=== PATIENT | male | born 1940 | race Caucasian/White ===

== ENCOUNTER 2021-07-30 12:00 | Inpatient (IN) | payer OTHER ==
[2021-08-04] MEDS ORDERED: fentaNYL Citrate/PF 100 MCG/2 ML SYRINGE ONE (06:59)
[2021-08-04] MEDS ORDERED: CEFAZOLIN 2 GM VIAL ONE (07:14)
[2021-08-04] MEDS ORDERED: Sodium Chloride 0.9% 100 ML ONE (07:14)
[2021-08-04] MEDS ORDERED: Lidocaine 1% MPF 2 ML VIAL ONE (07:34)
[2021-08-04] MEDS ORDERED: Lidocaine 1% PF 5 ML VIAL ONE (08:25)
[2021-08-04] MEDS ORDERED: Glycopyrrolate 0.2 MG/ML 5 ML SYRINGE ONE (08:25)
[2021-08-04] MEDS ORDERED: PHENYLEPHRINE-NS 100 MCG/ML 10 ML SYRINGE ONE (08:25)
[2021-08-04] MEDS ORDERED: PROPOFOL 200 MG/20 ML VIAL ONE (08:25)
[2021-08-04] MEDS ORDERED: Rocuronium Bromide 10 MG/ML (10ML VIAL) ONE (08:25)
[2021-08-04] MEDS ORDERED: Ondansetron PF 4 MG/2 ML Vial ONE (08:25)
[2021-08-04] MEDS ORDERED: Dexamethasone 20 MG/5 ML VIAL ONE (08:25)
[2021-08-04] MEDS ORDERED: Fentanyl 100 MCG/2 ML VIAL ONE ×2 (09:48→10:19)
[2021-08-04] MEDS ORDERED: Ondansetron HCl/PF 4 MG/2 ML Vial IVP PRN (09:49)
[2021-08-04] MEDS ORDERED: Promethazine HCl 25 MG/ML VIAL IVPB PRN (09:49)
[2021-08-04] MEDS ORDERED: Promethazine HCl 25 MG/ML VIAL IM PRN ×2 (09:49→14:45)
[2021-08-04 12:52] VITALS: BMI 25.7
[2021-08-04] MEDS: Sodium Chloride 0.9% 1,000 ML IV SCH (14:42)
[2021-08-04] MEDS ORDERED: Cyclobenzaprine 10 MG TAB PO PRN (14:45)
[2021-08-04] MEDS ORDERED: Morphine 4 MG/ML VIAL SLOW IVP PRN (14:45)
[2021-08-04] MEDS ORDERED: traMADol HCl 50 MG TAB PO PRN ×2 (14:45)
[2021-08-04] MEDS ORDERED: diphenhydrAMINE 50 MG/ML VIAL IVP PRN (14:45)
[2021-08-04] MEDS ORDERED: Ondansetron PF 4 MG/2 ML Vial IM PRN (14:45)
[2021-08-04] MEDS ORDERED: Promethazine HCl 12.5 MG SUPP PR PRN (14:45)
[2021-08-04] MEDS ORDERED: Acetaminophen/Codeine 30-300mg Tablet PO PRN ×2 (14:45)
[2021-08-04] MEDS ORDERED: Promethazine 25 MG TAB PO PRN (14:45)
[2021-08-04] MEDS ORDERED: Milk Of Magnesia 30 ML UDCUP PO PRN (14:45)
[2021-08-04] MEDS ORDERED: diphenhydrAMINE 25 MG CAP PO PRN (14:45)
[2021-08-04] MEDS ORDERED: Mag-Al 1200 mg/1200 mg/30 ML UDCUP PO PRN (14:45)
[2021-08-04] MEDS ORDERED: Morphine 2 MG/ML VIAL SLOW IVP PRN (14:45)
[2021-08-04] MEDS ORDERED: ceFAZolin (BATCH) 2 GM in Premix Bag 1 BAG IVPB SCH ×2 (16:00→22:00)
[2021-08-04] MEDS: CEFAZOLIN 2 GM in Sodium Chloride 0.9% 100 ML IVPB SCH (17:38)
[2021-08-04] MEDS ORDERED: Atorvastatin Calcium 10 MG TAB PO SCH (21:00)
[2021-08-05] MEDS: CEFAZOLIN 2 GM in Sodium Chloride 0.9% 100 ML IVPB SCH ×2 (00:58→07:59)
[2021-08-05] MEDS: Sodium Chloride 0.9% 1,000 ML IV SCH (01:02)
[2021-08-05] MEDS ORDERED: Dexamethasone 10 MG/ML VIAL SLOW IVP SCH (05:30)
[2021-08-05] MEDS ORDERED: Tamsulosin HCl 0.4 MG CAP PO SCH (06:00)
[2021-08-05] MEDS ORDERED: Lisinopril 5 MG TAB PO SCH (09:00)
[2021-08-05] MEDS ORDERED: Calcium Carbonate 600 MG TAB PO SCH (09:00)
[2021-08-05] MEDS ORDERED: Cyanocobalamin (Vitamin B-12) 1,000 MCG TAB PO SCH (09:00)
[2021-08-05 10:01] VITALS: BP 137/72; TEMP 98.7
== END 2021-08-05 13:40 | disposition home or self-care (01) | DRG 473 ==
LOC: SURG A 08-04 05:35 → EDSTATUS 08-04 12:00 → MSONC 08-04 12:48
PROVIDERS: ADMIT Neurological Surgery; ATTEND Neurological Surgery
PROC: 0RG20A0 Fusion of 2 or more Cervical Vertebral Joints with Interbody Fusion Device, Anterior Approach, Anterior Column, Open Approach (ICD-10-PCS; principal; 2021-08-04)
PROC: 0RB30ZZ Excision of Cervical Vertebral Disc, Open Approach (ICD-10-PCS; 2021-08-04)
PROC: 00NW0ZZ Release Cervical Spinal Cord, Open Approach (ICD-10-PCS; 2021-08-04)
DX: M50.321 Other cervical disc degeneration at C4-C5 level (principal); R13.10 Dysphagia, unspecified
CPT/HCPCS: 76000; 93005; 93010; C1713; J0690; J1100; J2405; J2704; J3010; J3490